=== PATIENT | female | born 1955 | race Caucasian/White ===

== ENCOUNTER 2018-01-23 16:00 | Inpatient (IN) | payer OTHER ==
[~2018-01-23] VITALS: Ht 157.5 cm; Wt 98.9 kg
[~2018-01-23 16:00] MED LIST: AMARYL 4MG; GLUCOVAN; HYZAAR; IMODIUM A-D2 MG PO; LIPITOR 10MG; PEPCID40 MG PO; SYNTHROID50 MCG; TOPROL XL100 MG PO; ZOFRAN4 MG PO
[2018-01-24] MEDS ORDERED: HYZAAR 100-12.1 EACH PO (11:38)
[2018-01-24] MEDS ORDERED: GLIMEPIRIDE4 MG PO (11:39)
[2018-01-24] MEDS ORDERED: ATORVASTATIN CA10 MG PO (11:41)
[2018-01-24] MEDS ORDERED: SYNTHROID137 MCG PO (11:57)
[2018-01-24] MEDS ORDERED: LANTUS SOL100 UNIT/1 SQ (11:59)
[2018-01-24] MEDS ORDERED: HUMALOG100 UNIT/1 (11:59)
== END 2018-02-01 14:51 | disposition home or self-care (01) | DRG 194 ==
LOC: ER 16:00 → SURG 19:49 → SEC-K 19:49 → SURG 01-24 00:28
PROC: B246ZZZ Ultrasonography of Right and Left Heart (ICD-10-PCS; principal; 2018-01-24)
PROC: 3E0F7GC Introduction of Other Therapeutic Substance into Respiratory Tract, Via Natural or Artificial Opening (ICD-10-PCS; 2018-01-24)
PROC: 4A033R1 Measurement of Arterial Saturation, Peripheral, Percutaneous Approach (ICD-10-PCS; 2018-01-30)
DX: J18.1 Lobar pneumonia, unspecified organism (principal); J45.41 Moderate persistent asthma with (acute) exacerbation; N18.4 Chronic kidney disease, stage 4 (severe); N17.8 Other acute kidney failure; I12.9 Hypertensive chronic kidney disease with stage 1 through stage 4 chronic kidney disease, or unspecified chronic kidney disease; E11.22 Type 2 diabetes mellitus with diabetic chronic kidney disease; D63.1 Anemia in chronic kidney disease; E03.8 Other specified hypothyroidism; J44.9 Chronic obstructive pulmonary disease, unspecified; Z88.0 Allergy status to penicillin

== ENCOUNTER 2018-05-24 15:59 | Emergency (ER) | payer OTHER ==
[~2018-05-24] VITALS: Ht 162.6 cm; Wt 104.3 kg
[~2018-05-24 15:59] MED LIST changes: +ATORVASTATIN CA10 MG PO; +GLIMEPIRIDE4 MG PO; +HUMALOG100 UNIT/1; +HYZAAR 100-12.1 EACH PO; +LANTUS SOL100 UNIT/1 SQ; +SYNTHROID137 MCG PO
[2018-05-24] MEDS ORDERED: ISORDIL10 MG (16:40)
[2018-05-24] MEDS ORDERED: CRESTOR5 MG (16:40)
[2018-05-24] MEDS ORDERED: LANTUS SOL100 UNIT/1 (16:41)
[2018-05-24] MEDS ORDERED: HUMALOG100 UNIT/1 (16:41)
== END 2018-05-27 02:58 | disposition home or self-care (01) ==
LOC: ER 15:59
DX: D50.0 Iron deficiency anemia secondary to blood loss (chronic) (principal); E11.22 Type 2 diabetes mellitus with diabetic chronic kidney disease; N18.4 Chronic kidney disease, stage 4 (severe); D63.1 Anemia in chronic kidney disease; I10 Essential (primary) hypertension; E03.8 Other specified hypothyroidism

== ENCOUNTER 2018-06-10 11:24 | Outpatient (CLI) | payer OTHER ==
[~2018-06-10 11:24] MED LIST changes: +CRESTOR5 MG; +ISORDIL10 MG; +LANTUS SOL100 UNIT/1
== END 2018-06-10 11:37 | disposition home or self-care (01) ==
LOC: LAB 11:24
DX: D64.89 Other specified anemias (principal); D63.1 Anemia in chronic kidney disease

== ENCOUNTER → 2018-08-29 09:22 | Outpatient (CLI) | payer OTHER | END | disposition home or self-care (01) | LOC: LAB 09:22 | DX: E03.8 Other specified hypothyroidism (principal); D63.1 Anemia in chronic kidney disease; N18.4 Chronic kidney disease, stage 4 (severe); D51.3 Other dietary vitamin B12 deficiency anemia; E78.5 Hyperlipidemia, unspecified; D51.8 Other vitamin B12 deficiency anemias; E55.9 Vitamin D deficiency, unspecified; E08.65 Diabetes mellitus due to underlying condition with hyperglycemia; I73.89 Other specified peripheral vascular diseases ==

== ENCOUNTER 2018-11-12 12:17 | Emergency (ER) | payer OTHER ==
[~2018-11-12] VITALS: Ht 162.6 cm; Wt 100.7 kg
[2018-11-12] MEDS ORDERED: SYNTHROID150 MCG PO (12:51)
[2018-11-12] MEDS ORDERED: CARDURA XL4 MG PO (12:52)
[2018-11-12] MEDS ORDERED: HYDRALAZINE HC100 MG PO (12:52)
[2018-11-12] MEDS ORDERED: CATAPRES0.3 M1 PO (12:52)
== END 2018-11-12 20:44 | disposition home or self-care (01) ==
LOC: ER 12:17 → CPU-OBS 12:18 → ER 20:44
DX: R07.89 Other chest pain (principal); R53.1 Weakness

== ENCOUNTER → 2019-01-18 16:11 | Outpatient (CLI) | payer OTHER ==
[~2019-01-18 16:11] MED LIST changes: +CARDURA XL4 MG PO; +CATAPRES0.3 M1 PO; +HYDRALAZINE HC100 MG PO; +SYNTHROID150 MCG PO
== END | disposition home or self-care (01) ==
LOC: LAB 16:11
DX: D50.8 Other iron deficiency anemias (principal); D63.1 Anemia in chronic kidney disease; N18.3 Chronic kidney disease, stage 3 (moderate); D51.3 Other dietary vitamin B12 deficiency anemia; E03.8 Other specified hypothyroidism; E78.49 Other hyperlipidemia; E55.9 Vitamin D deficiency, unspecified; E08.65 Diabetes mellitus due to underlying condition with hyperglycemia; I73.89 Other specified peripheral vascular diseases; D53.8 Other specified nutritional anemias; D52.0 Dietary folate deficiency anemia; R94.5 Abnormal results of liver function studies

== ENCOUNTER 2019-03-28 10:52 | Inpatient (IN) | payer OTHER ==
[~2019-03-28] VITALS: Ht 165.1 cm; Wt 90.7 kg
== END 2019-04-10 11:23 | disposition home or self-care (01) | DRG 580 ==
LOC: ER 10:52 → SURH 17:43 → SEC-K 17:43 → SURH 20:46 → MEDJ 03-29 20:44
PROVIDERS: ADMIT Internal Medicine
PROC: 0J9C0ZZ Drainage of Pelvic Region Subcutaneous Tissue and Fascia, Open Approach (ICD-10-PCS; principal; 2019-03-28)
PROC: 8E0ZXY6 Isolation (ICD-10-PCS; 2019-03-29)
PROC: 3E0F7GC Introduction of Other Therapeutic Substance into Respiratory Tract, Via Natural or Artificial Opening (ICD-10-PCS; 2019-04-02)
DX: L02.214 Cutaneous abscess of groin (principal); L03.116 Cellulitis of left lower limb; N18.4 Chronic kidney disease, stage 4 (severe); N17.8 Other acute kidney failure; J45.31 Mild persistent asthma with (acute) exacerbation; B37.49 Other urogenital candidiasis; B96.5 Pseudomonas (aeruginosa) (mallei) (pseudomallei) as the cause of diseases classified elsewhere; B95.1 Streptococcus, group B, as the cause of diseases classified elsewhere; E11.65 Type 2 diabetes mellitus with hyperglycemia; Z88.0 Allergy status to penicillin; E11.22 Type 2 diabetes mellitus with diabetic chronic kidney disease; D63.1 Anemia in chronic kidney disease; R39.2 Extrarenal uremia; E87.8 Other disorders of electrolyte and fluid balance, not elsewhere classified; I13.10 Hypertensive heart and chronic kidney disease without heart failure, with stage 1 through stage 4 chronic kidney disease, or unspecified chronic kidney disease; J22 Unspecified acute lower respiratory infection; D50.8 Other iron deficiency anemias; E03.8 Other specified hypothyroidism; B96.3 Hemophilus influenzae [H. influenzae] as the cause of diseases classified elsewhere

== ENCOUNTER 2019-05-11 10:26 | Outpatient (CLI) | payer OTHER | END 2019-05-11 10:33 | disposition home or self-care (01) | LOC: LAB 10:26 | DX: D63.1 Anemia in chronic kidney disease (principal); N18.4 Chronic kidney disease, stage 4 (severe); D50.8 Other iron deficiency anemias; D51.3 Other dietary vitamin B12 deficiency anemia; D51.8 Other vitamin B12 deficiency anemias; E03.8 Other specified hypothyroidism; E78.49 Other hyperlipidemia; E55.9 Vitamin D deficiency, unspecified; E08.65 Diabetes mellitus due to underlying condition with hyperglycemia; I73.89 Other specified peripheral vascular diseases; D53.8 Other specified nutritional anemias; D52.0 Dietary folate deficiency anemia; R94.5 Abnormal results of liver function studies; C90.00 Multiple myeloma not having achieved remission; D47.2 Monoclonal gammopathy ==

== ENCOUNTER 2020-02-20 12:01 | Emergency (ER) | payer OTHER ==
[~2020-02-20] VITALS: Ht 162.6 cm; Wt 100.7 kg
[2020-02-20] MEDS ORDERED: HYZAAR 100-251 EACH PO (12:28)
[2020-02-20] MEDS ORDERED: CRESTOR40 MG PO (12:28)
[2020-02-20] MEDS ORDERED: ADULT LOW DOSE81 M1 PO (12:28)
== END 2020-02-21 23:27 | disposition home or self-care (01) ==
LOC: ER 12:01
DX: D64.89 Other specified anemias (principal); N18.4 Chronic kidney disease, stage 4 (severe); D63.1 Anemia in chronic kidney disease; E11.22 Type 2 diabetes mellitus with diabetic chronic kidney disease; I10 Essential (primary) hypertension

== ENCOUNTER 2020-03-05 11:16 | Outpatient (CLI) | payer OTHER ==
[~2020-03-05 11:16] MED LIST changes: +ADULT LOW DOSE81 M1 PO; +CRESTOR40 MG PO; +HYZAAR 100-251 EACH PO
== END 2020-03-05 11:27 | disposition home or self-care (01) ==
LOC: NUCLEAR 11:16
PROVIDERS: ATTEND Internal Medicine Pulmonary Disease
DX: I87.2 Venous insufficiency (chronic) (peripheral) (principal)

== ENCOUNTER 2020-11-12 14:59 | Inpatient (IN) | payer OTHER ==
[~2020-11-12] VITALS: Ht 162.6 cm; Wt 104.3 kg
== END 2020-11-29 20:02 | disposition home or self-care (01) | DRG 291 ==
LOC: ER 14:59 → SURH 19:49 → ICU-2 19:49 → MEDJ 11-16 09:06 → SEC-K 11-16 10:03 → MEDJ 11-16 16:08 → SURH 11-16 18:32
PROVIDERS: Radiology Vascular & Interventional Radiology; ADMIT Internal Medicine; ATTEND Internal Medicine
PROC: 3E0F7SF Introduction of Other Gas into Respiratory Tract, Via Natural or Artificial Opening (ICD-10-PCS; 2020-11-13)
PROC: 05HM33Z Insertion of Infusion Device into Right Internal Jugular Vein, Percutaneous Approach (ICD-10-PCS; 2020-11-14)
PROC: 4A033R1 Measurement of Arterial Saturation, Peripheral, Percutaneous Approach (ICD-10-PCS; 2020-11-15)
PROC: 4A12X4Z Monitoring of Cardiac Electrical Activity, External Approach (ICD-10-PCS; 2020-11-16)
PROC: 30233N1 Transfusion of Nonautologous Red Blood Cells into Peripheral Vein, Percutaneous Approach (ICD-10-PCS; 2020-11-18)
PROC: 0JH63XZ Insertion of Tunneled Vascular Access Device into Chest Subcutaneous Tissue and Fascia, Percutaneous Approach (ICD-10-PCS; 2020-11-22)
PROC: 02H633Z Insertion of Infusion Device into Right Atrium, Percutaneous Approach (ICD-10-PCS; principal; 2020-11-22 19:00)
PROC: 5A1D70Z Performance of Urinary Filtration, Intermittent, Less than 6 Hours Per Day (ICD-10-PCS; 2020-11-23)
DX: I13.2 Hypertensive heart and chronic kidney disease with heart failure and with stage 5 chronic kidney disease, or end stage renal disease (principal); N18.6 End stage renal disease; I24.9 Acute ischemic heart disease, unspecified; E87.4 Mixed disorder of acid-base balance; L97.828 Non-pressure chronic ulcer of other part of left lower leg with other specified severity; N17.8 Other acute kidney failure; I50.9 Heart failure, unspecified; Z79.4 Long term (current) use of insulin; E11.22 Type 2 diabetes mellitus with diabetic chronic kidney disease; D63.1 Anemia in chronic kidney disease; Z20.822 Contact with and (suspected) exposure to COVID-19; Z99.2 Dependence on renal dialysis; I27.20 Pulmonary hypertension, unspecified